=== PATIENT | female | born 1990 | race Hispanic/Latino ===

== ENCOUNTER 2021-08-20 23:27 | Inpatient (IN) | payer BC ==
[2021-08-21] MEDS ORDERED: hydrALAZINE 20 MG/ML VIAL SLOW IVP PRN ×2 (00:17→11:18)
[2021-08-21] MEDS ORDERED: Butorphanol Tartrate 1 MG/ML VIAL SLOW IVP PRN ×2 (02:10→17:30)
[2021-08-21] MEDS ORDERED: Acetaminophen 500 MG TAB PO PRN (02:10)
[2021-08-21] MEDS ORDERED: Promethazine HCl 25 MG/ML VIAL IM PRN ×2 (02:10→05:18)
[2021-08-21] MEDS ORDERED: Ondansetron PF 4 MG/2 ML Vial IVP PRN ×2 (02:10→05:18)
[2021-08-21] MEDS ORDERED: Lactated Ringer's 1,000 ML IV SCH ×2 (02:15)
[2021-08-21 02:27] VITALS: BMI 46.8
[2021-08-21] MEDS ORDERED: Penicillin G Potassium 5 MILL.UNITS VIAL ONE (03:21)
[2021-08-21 03:42] LABS: Hemoglobin 11.2 g/dL (12.0-15.5); Mean Corpuscular HGB CONC 32.8 g/dL (32.0-36.0); Mean Corpuscular Hemoglobin 28.4 pg (27.0-33.0); Mean Corpuscular Volume 86.3 fl (81.6-98.3); Mean Platelet Volume 9.5 fl (7.4-10.4); Platelet Count 283 10x3/uL (150-450); RBC Distribution Width 14.1 % (11.5-14.5); Red Blood Cell (RBC) Count 3.95 10x6/uL (3.90-5.03); White Blood Cell (WBC) Count 12.2 10x3/uL (3.5-10.5)
[2021-08-21] MEDS ORDERED: Penicillin G Potassium 5 MILL.UNITS in Sodium Chloride 0.9% 100 ML IVPB SCH (03:45)
[2021-08-21 03:58] LABS: ALT (SGPT) 15 U/L (8-55); AST (SGOT) 16 U/L (5-34); Albumin 3.1 g/dL (3.5-5.0); Alkaline Phosphatase 196 U/L (40-110); Anion Gap 14 mmol/L (10-20); BUN (Urea Nitrogen) 10 mg/dL (7.0-18.7); Bilirubin, Total 0.3 mg/dL (0.2-1.2); Calc. Creatinine Clearance 224 mL/min (70-130); Calcium 8.6 mg/dL (7.8-10.44); Carbon Dioxide 20 mmol/L (22-29); Chloride 106 mmol/L (98-107); Globulin 3.6 g/dL (2.4-3.5); Glucose 83 mg/dL (70-105); Potassium 3.8 mmol/L (3.5-5.1); Protein, Total 6.7 g/dL (6.0-8.3); Sodium 136 mmol/L (136-145)
[2021-08-21 04:13] LABS: Hep B Surf Ag Non-Reactive S/CO (NonReactive); Syphilis Antibody Nonreactive (Nonreactive); Syphilis Antibody Index 0.14 S/CO (<1.00 Non-Reactive)
[2021-08-21 04:18] LABS: HBSAg Index 0.16 S/CO (0-0.99)
[2021-08-21 04:18] LABS: SARS-CoV-2 NAA Rapid Test Not Detected (NotDetected)
[2021-08-21] MEDS ORDERED: Famotidine/PF 20 mg/2ml Vial SLOW IVP PRN (04:25)
[2021-08-21] MEDS ORDERED: Bicitra 30 ML UDCUP PO PRN (04:25)
[2021-08-21] MEDS ORDERED: ceFAZolin 2 GM/Dextrose 50 ML 2 GM in Premix Bag 1 BAG IVPB SCH (04:30)
[2021-08-21] MEDS ORDERED: Morphine PF 10 MG/10 ML VIAL ONE (04:53)
[2021-08-21] MEDS ORDERED: Fentanyl 100 MCG/2 ML VIAL ONE (04:53)
[2021-08-21] MEDS ORDERED: Ondansetron PF 4 MG/2 ML Vial ONE (04:53)
[2021-08-21] MEDS ORDERED: Phenylephrine 10 MG/ML VIAL ONE (04:53)
[2021-08-21] MEDS ORDERED: Dexamethasone 4 mg/ml Vial ONE (04:53)
[2021-08-21] MEDS ORDERED: Oxytocin 10 UNITS/ML VIAL ONE (04:54)
[2021-08-21] MEDS ORDERED: Ketorolac Tromethamine 30 MG/ML VIAL ONE (04:54)
[2021-08-21] MEDS ORDERED: Hydrocerin (Eucerin) Cream 120 gm Jar TOP PRN (05:18)
[2021-08-21] MEDS ORDERED: Naloxone HCl 0.4 mg/ml Vial IVP PRN ×2 (05:18)
[2021-08-21] MEDS ORDERED: diphenhydrAMINE 50 MG/ML VIAL IVP PRN (05:18)
[2021-08-21] MEDS ORDERED: Promethazine HCl 25 MG SUPP PR PRN (05:18)
[2021-08-21] MEDS ORDERED: Fentanyl 100 MCG/2 ML VIAL SLOW IVP PRN (05:18)
[2021-08-21] MEDS ORDERED: Meperidine HCl/PF 25 MG/ML VIAL SLOW IVP PRN (05:18)
[2021-08-21] MEDS ORDERED: Naloxone HCl 0.4 mg/ml Vial IV PRN (05:18)
[2021-08-21] MEDS ORDERED: Ondansetron HCl/PF 4 MG/2 ML Vial IVP PRN (05:18)
[2021-08-21] MEDS ORDERED: Communication Order-Pharmacy FS SCH (05:30)
[2021-08-21 06:38] LABS: RapidComm Collect By NURSE
[2021-08-21 06:39] LABS: RapidComm Collect By NURSE; pH (Cord, venous) 7.233 (7.250-7.350)
[2021-08-21] MEDS ORDERED: Penicillin G 2.5 MILL.units 2.5 MILL.UNITS in Premix Bag 1 BAG IVPB SCH (08:00)
[2021-08-21] MEDS ORDERED: Meperidine HCl/PF 25 MG/ML VIAL ONE (09:14)
[2021-08-21] MEDS ORDERED: NS w/ Oxytocin 30 units 500 ML ONE (09:21)
[2021-08-21] MEDS ORDERED: Bisacodyl 10 MG SUPP PR PRN (11:18)
[2021-08-21] MEDS ORDERED: diphenhydrAMINE 25 MG CAP PO PRN (11:18)
[2021-08-21] MEDS ORDERED: HYDROcodone/Acetaminophen 5/325 mg Tablet PO PRN (11:18)
[2021-08-21] MEDS ORDERED: Simethicone Chewable 80 MG TAB PO PRN (11:18)
[2021-08-21] MEDS ORDERED: Lanolin Ointment 7 GM TUBE TOP PRN (11:18)
[2021-08-21] MEDS ORDERED: Ketorolac Tromethamine 30 MG/ML VIAL IVP SCH (11:30)
[2021-08-21] MEDS ORDERED: Docusate 100 MG CAP PO SCH (12:00)
[2021-08-21] MEDS ORDERED: Ferrous Sulfate 325 MG TAB PO SCH (12:00)
[2021-08-21] MEDS ORDERED: Prenatal Vitamin 1 TAB PO SCH (12:00)
[2021-08-21] MEDS: Ibuprofen 800 MG TAB PO SCH ×2 (16:05→21:24)
[2021-08-21] MEDS: Ferrous Sulfate 325 MG TAB PO SCH (21:24)
[2021-08-21] MEDS: Docusate 100 MG CAP PO SCH (21:43)
[2021-08-22] MEDS: HYDROcodone/Acetaminophen 5/325 mg Tablet PO PRN ×2 (01:13→05:30)
[2021-08-22 04:34] LABS: Hemoglobin 9.3 g/dL (12.0-15.5); Mean Corpuscular HGB CONC 32.5 g/dL (32.0-36.0); Mean Corpuscular Hemoglobin 28.1 pg (27.0-33.0); Mean Corpuscular Volume 86.4 fl (81.6-98.3); Mean Platelet Volume 9.5 fl (7.4-10.4); Platelet Count 263 10x3/uL (150-450); RBC Distribution Width 14.1 % (11.5-14.5); Red Blood Cell (RBC) Count 3.31 10x6/uL (3.90-5.03); White Blood Cell (WBC) Count 14.9 10x3/uL (3.5-10.5)
[2021-08-22] MEDS: Ibuprofen 800 MG TAB PO SCH ×3 (05:30→21:20)
[2021-08-22] MEDS: Docusate 100 MG CAP PO SCH ×2 (08:25→21:20)
[2021-08-22] MEDS: Prenatal Vitamin 1 TAB PO SCH (08:25)
[2021-08-22] MEDS: Ferrous Sulfate 325 MG TAB PO SCH ×2 (08:26→21:20)
[2021-08-22] MEDS ORDERED: Boostrix 0.5 ML (Tdap) VIAL IM ONE (11:18)
[2021-08-23] MEDS ORDERED: Ibuprofen 800 MG TAB PO SCH (06:00)
[2021-08-23 07:49] VITALS: BP 116/59; TEMP 98.2
[2021-08-23] MEDS: Docusate 100 MG CAP PO SCH (08:40)
[2021-08-23] MEDS: Prenatal Vitamin 1 TAB PO SCH (08:40)
[2021-08-23] MEDS: Ferrous Sulfate 325 MG TAB PO SCH (08:40)
== END 2021-08-23 11:45 | disposition home or self-care (01) | DRG 788 ==
LOC: CSHLD/OP 23:27 → CSHLD 08-21 02:16 → CSHPP 08-21 10:00
PROVIDERS: ADMIT Obstetrics & Gynecology; ATTEND Obstetrics & Gynecology
PROC: 10D00Z1 Extraction of Products of Conception, Low, Open Approach (ICD-10-PCS; principal; 2021-08-21)
DX: O76 Abnormality in fetal heart rate and rhythm complicating labor and delivery (principal); Z20.822 Contact with and (suspected) exposure to COVID-19; O77.0 Labor and delivery complicated by meconium in amniotic fluid; Z3A.40 40 weeks gestation of pregnancy; Z37.0 Single live birth
CPT/HCPCS: 36415; 51702; 76819; 80053; 82805; 85027; 86780; 86850; 86900; 86901; 87340; 99285; J1100; J1885; J2175; J2274; J2370; J2405; J2590; J3010; U0002